=== PATIENT | male | born 1995 | race Caucasian/White ===

== ENCOUNTER 2016-08-14 22:37 | Emergency (ER) | payer OTHER ==
[~2016-08-14] VITALS: Ht 177.8 cm; Wt 68.0 kg
[~2016-08-14 22:37] MED LIST: BACTRIM DS 8001 TA1 PO; KEFLEX500 MG PO
[2016-08-15 07:18] VITALS: BP 112/70
== END 2016-08-15 08:00 | disposition home or self-care (01) ==
LOC: ED 22:37
DX: S02.2XXA Fracture of nasal bones, initial encounter for closed fracture (principal); Y04.2XXA Assault by strike against or bumped into by another person, initial encounter; Y93.89 Activity, other specified; Y92.9 Unspecified place or not applicable; Y99.9 Unspecified external cause status